=== PATIENT | female | born 1945 | race Asian ===

== ENCOUNTER 2017-02-26 03:35 | Inpatient (IN) | payer MEDICARE, OTHER ==
[~2017-02-26] VITALS: Ht 162.6 cm; Wt 47.0 kg
[~2017-02-26 03:35] MED LIST: ACID1TAB15 PO; ALEN35TA32 PO; LEVE500T53 PO; LOPE2 PO; MECL25TA3 PO; METF500T PO; METF500T7 PO; PANT40TA PO; SCOP1PAT11 TD; TAMO10 PO; VITAD400 PO
[2017-02-26 03:47] LABS: GLUCOSE,POINT OF CARE 58 MG/DL (70-110)
[2017-02-26] MEDS ORDERED: INSLAN SQ (03:47)
[2017-02-26] MEDS ORDERED: INSNOV SQ (03:47)
[2017-02-26] MEDS ORDERED: QUET25TA PO (03:56)
[2017-02-26] MEDS ORDERED: LORA-703 PO (03:56)
[2017-02-26] MEDS ORDERED: MEGE400O4 PO (03:56)
[2017-02-26] MEDS ORDERED: DOCU250C91 PO (03:56)
[2017-02-26] MEDS ORDERED: DEXA4TAB PO (03:56)
[2017-02-26] MEDS ORDERED: DEXTROSE 50%-WATER 25 GM/50 ML SYRINGE IVP ONE ×2 (04:00→12:15)
[2017-02-26] MEDS ORDERED: SODIUM CHLORIDE 0.9% 1,000 ML IV ONE ×2 (04:15→05:15)
[2017-02-26 04:17] LABS: GLUCOSE,POINT OF CARE 248 MG/DL (70-110)
[2017-02-26 04:17] LABS: HEMATOCRIT 33.2 % (36-46); HEMOGLOBIN 10.8 g/dL (12.0-16.0); MEAN CORPUSCULAR HEMOGLOBIN 31.6 pg (26.0-34.0); MEAN CORPUSCULAR HGB CONC 32.4 G/dL (31.0-37.0); MEAN CORPUSCULAR VOLUME 97 fL (80-100); PLATELET COUNT (AUTO) 108 K/uL (150-450); RED BLOOD CELL COUNT(AUTO) 3.41 MIL/uL (4.00-5.20); RED CELL DISTRIBUTION WIDTH 17.3 % (11.5-14.5)
[2017-02-26 04:20] LABS: APPEARANCE,URINE CLOUDY (CLEAR); GLUCOSE, URINE (UA) >=1000 mg/dL (NEGATIVE); KETONES,URINE NEGATIVE (NEGATIVE); LEUKOCYTE ESTERASE ,URINE TRACE (NEGATIVE); OCCULT BLOOD,URINE NEGATIVE (NEGATIVE); PROTEIN,URINE POS 1+ (NEGATIVE)
[2017-02-26 04:21] LABS: ADD UA MICROSCOPIC YES
[2017-02-26 04:26] LABS: INR 1.1 (0.9-1.1); PROTHROMBIN TIME 11.4 SEC (9.4-11.6)
[2017-02-26] MEDS ORDERED: ACETAMINOPHEN 650 MG RECTAL SUPPOSITORY PR ONE (04:30)
[2017-02-26 04:37] LABS: ALANINE AMINOTRANSFERASE 27 U/L (12-78); ALBUMIN 1.1 g/dL (3.4-5.0); ANION GAP 12 mmol/L (8-16); ASPARTATE AMINOTRANSFERASE 24 U/L (15-37); BILIRUBIN,TOTAL 0.8 mg/dL (0.1-1.0); CALCIUM, TOTAL 8.3 mg/dL (8.8-10.5); CARBON DIOXIDE 24 mmol/L (22-29); CHLORIDE 115 mmol/L (98-107); CREATININE 0.85 mg/dL (0.60-1.30); GLOMERULAR FILTR. RATE CALC > 60 mL/min (>60); LACTIC ACID 4.1 mmol/L (0.4-2.0); POTASSIUM 3.9 mmol/L (3.5-5.1); SODIUM SERUM 151 mmol/L (136-145); TOTAL PROTEIN, SERUM 5.5 g/dL (6.4-8.2); UREA NITROGEN, BLOOD 27 mg/dL (7-18)
[2017-02-26 05:04] LABS: RBC,URINE 0-2 /HPF (0-2); SQUAMOUS EPITHELIAL CELL,UR Few /LPF (None Seen)
[2017-02-26 05:08] LABS: BAND NEUTROPHILS % (MANUAL) 48 % (1-5); CORRECTED WHITE BLOOD COUNT 14.4 K/uL (4.5-11.0); LYMPHOCYTES % (MANUAL) 6 % (22-44); METAMYELOCYTES % 3 % (0-0); MYELOCYTES % 4 % (0-0); TOTAL CELLS COUNTED 100; WHITE BLOOD COUNT (AUTO) 14.4 K/uL (4.5-11.0)
[2017-02-26] MEDS ORDERED: CefTRIAXone 1 GM/DEXTROSE 50 ML IV ONE (05:15)
[2017-02-26 05:37] LABS: GLUCOSE,POINT OF CARE 166 MG/DL (70-110)
[2017-02-26] MEDS ORDERED: ACETAMINOPHEN 325 MG TABLET PO PRN (06:00)
[2017-02-26] MEDS ORDERED: ONDANSETRON HCL 4 MG/2 ML VIAL IVP PRN ×2 (06:00→13:15)
[2017-02-26 06:05] LABS: REFLEX LACTIC ACID? YES YES
[2017-02-26] MEDS ORDERED: AZITHROMYCIN 500 MG/NS 250 ML IV ONE (06:45)
[2017-02-26] MEDS ORDERED: MORPHINE SULFATE 4 MG/ML SYRINGE IVP ONE (07:15)
[2017-02-26] MEDS ORDERED: SODIUM CHLORIDE 0.9% 500 ML IV ONE ×3 (07:15→18:30)
[2017-02-26] MEDS ORDERED: ONDANSETRON HCL 4 MG/2 ML VIAL IVP ONE (07:15)
[2017-02-26 07:52] LABS: TEMPERATURE, FAHRENHEIT, BG 99.3 FAHREN (96.0-98.6)
[2017-02-26 07:55] LABS: ABG A-A DIFF O2 248.7 mmHg (10-20.0); ABG BASE EXCESS -7.4 mmol/L (-2.0-3.0); ABG OXYHEMOGLOBIN 97.4 % (94.0-100.0); ABG PCO2 35 mmHg (35-45); ABG PH 7.334 (7.35-7.450)
[2017-02-26 07:56] LABS: ALLEN TEST, BLOOD GAS Positive; IPAP, BG 12 cm H2O
[2017-02-26] MEDS ORDERED: ETOMIDATE 2 MG/ML 10 ML VIAL IVP ONE ×2 (08:05→12:23)
[2017-02-26] MEDS ORDERED: ALBUTEROL SULFATE 2.5 MG/0.5 ML NEB SOLUTION NEB ONE (09:00)
[2017-02-26] MEDS ORDERED: 0.9% SODIUM CHLORIDE 5 ML NEB SOLUTION NEB ONE (09:27)
[2017-02-26 10:17] LABS: GLUCOSE,POINT OF CARE 93 MG/DL (70-110)
[2017-02-26] MEDS ORDERED: ACETAMINOPHEN 650 MG/ISO-OSM 65 ML IV ONE (10:45)
[2017-02-26] MEDS ORDERED: SUCCINYLCHOLINE CHLORIDE 20 MG/ML 10 ML VIAL ONE ×2 (10:46→11:53)
[2017-02-26] MEDS ORDERED: RAPID SEQUENCE KIT [RSI] 1 EACH KIT ONE ×4 (10:46→11:53)
[2017-02-26] MEDS: PHENYLEPHRINE 200 MG/D5%-WATER 250 ML IV PRN (12:05)
[2017-02-26 12:12] LABS: GLUCOSE,POINT OF CARE 62 MG/DL (70-110)
[2017-02-26] MEDS ORDERED: SUCCINYLCHOLINE CHLORIDE 20 MG/ML 10 ML VIAL IVP ONE (12:25)
[2017-02-26] MEDS: PROPOFOL 1000 MG/ISO-OSM 100 ML IV PRN (13:00)
[2017-02-26] MEDS ORDERED: INSULIN REGULAR, HUMAN 100 UNITS/ML SQ PRN (13:15)
[2017-02-26] MEDS ORDERED: BISACODYL 10 MG RECTAL RECTAL SUPPOSITORY PR PRN (13:15)
[2017-02-26] MEDS ORDERED: DEXTROSE 50%-WATER 25 GM/50 ML SYRINGE IVP PRN (13:15)
[2017-02-26 13:54] LABS: ABG A-A DIFF O2 527.1 mmHg (10-20.0); ABG BASE EXCESS -10.8 mmol/L (-2.0-3.0); ABG HCO3 16.1 mmol/L (22.0-26.0); ABG OXYHEMOGLOBIN 96.3 % (94.0-100.0); ABG PCO2 50 mmHg (35-45); ABG PH 7.169 (7.35-7.450); ALLEN TEST, BLOOD GAS Positive; TEMPERATURE, FAHRENHEIT, BG 100.3 FAHREN (96.0-98.6)
[2017-02-26] MEDS: ALBUTEROL SULFATE 2.5 MG/0.5 ML NEB SOLUTION NEB SCH ×2 (13:58→20:00)
[2017-02-26] MEDS: IPRATROPIUM BROMIDE 0.5 MG/2.5 ML NEB SOLUTION NEB SCH ×2 (13:58→20:00)
[2017-02-26] MEDS ORDERED: DILTIAZEM HCL 5 MG/ML 5 ML VIAL IVP ONE (14:15)
[2017-02-26] MEDS: NOREPINEPHRINE 4 MG/D5%-WATER 250 ML IV PRN ×2 (15:01→20:09)
[2017-02-26 15:33] LABS: ABG A-A DIFF O2 362.2 mmHg (10-20.0); ABG BASE EXCESS -11.3 mmol/L (-2.0-3.0); ABG OXYHEMOGLOBIN 92.8 % (94.0-100.0); ABG PCO2 41 mmHg (35-45); ABG PH 7.222 (7.35-7.450)
[2017-02-26 15:34] LABS: ALLEN TEST, BLOOD GAS Positive
[2017-02-26 15:37] LABS: GLUCOSE,POINT OF CARE 127 MG/DL (70-110)
[2017-02-26 17:22] LABS: GLUCOSE,POINT OF CARE 113 MG/DL (70-110)
[2017-02-26] MEDS ORDERED: DEXTROSE 5%-0.45% SODIUM CHL 1,000 ML IV ONE (18:12)
[2017-02-26] MEDS ORDERED: ALBUMIN HUMAN 25%-25GM/100ML 100 ML IV SCH (18:15)
[2017-02-26] MEDS ORDERED: DEXTROSE 5%-0.45% SODIUM CHL 1,000 ML IV SCH (18:15)
[2017-02-26] MEDS ORDERED: VASOPRESSIN 100 UNITS in DEXTROSE 5%-WATER 245 ML IV PRN (18:30)
[2017-02-26] MEDS: ALBUMIN HUMAN 25%-25GM/100ML 100 ML IV SCH (18:37)
[2017-02-26 20:00] VITALS: BP 144/50
[2017-02-26] MEDS: PIPERACILLIN/TAZO 3.375 GM/D5W 50 ML IV SCH (20:10)
[2017-02-26] MEDS ORDERED: BARIUM SULFATE 0.1% SUSPENSION 450 ML BOTTLE ONE (21:21)
[2017-02-26 22:00] VITALS: BP 144/50
[2017-02-26] MEDS ORDERED: LevETIRAcetam 500 MG in DEXTROSE 5%-WATER 100 ML IV SCH (23:00)
[2017-02-27] VITALS: BP 120/46
[2017-02-27] MEDS: PROPOFOL 1000 MG/ISO-OSM 100 ML IV PRN (00:38)
[2017-02-27] MEDS: NOREPINEPHRINE 4 MG/D5%-WATER 250 ML IV PRN ×3 (00:39→07:44)
[2017-02-27 01:02] LABS: GLUCOSE COMMENT 1 Received Meds; GLUCOSE,POINT OF CARE 199 MG/DL (70-110)
[2017-02-27] MEDS: PIPERACILLIN/TAZO 3.375 GM/D5W 50 ML IV SCH ×2 (01:24→06:40)
[2017-02-27] MEDS: ALBUMIN HUMAN 25%-25GM/100ML 100 ML IV SCH (01:25)
[2017-02-27 02:00] VITALS: BP 109/42
[2017-02-27] MEDS: IPRATROPIUM BROMIDE 0.5 MG/2.5 ML NEB SOLUTION NEB SCH (02:08)
[2017-02-27] MEDS: ALBUTEROL SULFATE 2.5 MG/0.5 ML NEB SOLUTION NEB SCH (02:08)
[2017-02-27] MEDS: PHENYLEPHRINE 200 MG/D5%-WATER 250 ML IV PRN (02:11)
[2017-02-27 04:00] VITALS: BP 113/44
[2017-02-27 05:22] LABS: ANION GAP 21 mmol/L (8-16); CALCIUM, TOTAL 6.6 mg/dL (8.8-10.5); CARBON DIOXIDE 12 mmol/L (22-29); CHLORIDE 110 mmol/L (98-107); CREATINE KINASE, TOTAL 60 U/L (26-192); CREATININE 1.26 mg/dL (0.60-1.30); GLOMERULAR FILTR. RATE CALC 42 mL/min (>60); POTASSIUM 4.2 mmol/L (3.5-5.1); SODIUM SERUM 143 mmol/L (136-145); THYROID STIMULATING HORMONE 0.08 uIU/mL (0.36-3.74); UREA NITROGEN, BLOOD 30 mg/dL (7-18)
[2017-02-27 05:43] LABS: HEMATOCRIT 32.7 % (36-46); HEMOGLOBIN 10.2 g/dL (12.0-16.0); MEAN CORPUSCULAR HEMOGLOBIN 31.5 pg (26.0-34.0); MEAN CORPUSCULAR HGB CONC 31.1 G/dL (31.0-37.0); MEAN CORPUSCULAR VOLUME 102 fL (80-100); RED BLOOD CELL COUNT(AUTO) 3.22 MIL/uL (4.00-5.20)
[2017-02-27 06:30] VITALS: BP 94/40
[2017-02-27 06:57] LABS: CHOL/HDL RATIO 6.3 (3.9-5.7)
[2017-02-27 06:59] LABS: PLATELET COUNT (AUTO) 90 K/uL (150-450)
[2017-02-27 07:00] LABS: HEMOGLOBIN A1C 9.8 % (4.5-6.2)
[2017-02-27] MEDS ORDERED: DOPamine HCL 400 MG/D5%-WATER 250 ML IV PRN (07:47)
[2017-02-27 08:00] LABS: ABG A-A DIFF O2 613.9 mmHg (10-20.0); ABG BASE EXCESS -34.2 mmol/L (-2.0-3.0); ABG OXYHEMOGLOBIN 54.9 % (94.0-100.0); ABG PCO2 58 mmHg (35-45)
[2017-02-27 08:19] LABS: ABG HCO3 1.3 mmol/L (22.0-26.0)
[2017-02-27 08:37] LABS: GLUCOSE,POINT OF CARE 141 MG/DL (70-110)
[2017-02-27 08:40] LABS: VITAMIN B12 LEVEL > 2000 pg/mL (211-911)
[2017-02-27] MEDS ORDERED: PANTOPRAZOLE SODIUM 40 MG/VIAL IVP SCH (09:00)
[2017-02-27] MEDS ORDERED: LEVOFLOXACIN 500 MG/D5% WATER 100 ML IV SCH (09:00)
[2017-02-27 09:06] LABS: GLUCOSE,POINT OF CARE 107 MG/DL (70-110)
[2017-02-27 10:21] LABS: BAND NEUTROPHILS % (MANUAL) 45 % (1-5); LYMPHOCYTES % (MANUAL) 6 % (22-44); METAMYELOCYTES % 3 % (0-0); MYELOCYTES % 5 % (0-0); TOTAL CELLS COUNTED 100
[2017-02-27 10:25] LABS: CORRECTED WHITE BLOOD COUNT 4.2 K/uL (4.5-11.0); RBC MORPHOLOGY COMMENT ABNORMAL R
[2017-02-27 10:27] LABS: WHITE BLOOD COUNT (AUTO) 4.2 K/uL (4.5-11.0)
== END 2017-02-27 08:06 | disposition expired | DRG 871 ==
LOC: EMS 03:37 → ICU 16:34
PROVIDERS: ADMIT Internal Medicine Geriatric Medicine; ATTEND Internal Medicine Geriatric Medicine
PROC: 5A1935Z Respiratory Ventilation, Less than 24 Consecutive Hours (ICD-10-PCS; principal; 2017-02-26)
PROC: 0BH17EZ Insertion of Endotracheal Airway into Trachea, Via Natural or Artificial Opening (ICD-10-PCS; 2017-02-26)
DX: A41.9 Sepsis, unspecified organism (principal); J96.00 Acute respiratory failure, unspecified whether with hypoxia or hypercapnia; G93.40 Encephalopathy, unspecified; J18.9 Pneumonia, unspecified organism; R65.21 Severe sepsis with septic shock; E46 Unspecified protein-calorie malnutrition; E87.0 Hyperosmolality and hypernatremia; E87.2 Acidosis; C79.31 Secondary malignant neoplasm of brain; C78.00 Secondary malignant neoplasm of unspecified lung; D61.818 Other pancytopenia; N39.0 Urinary tract infection, site not specified; D69.6 Thrombocytopenia, unspecified; E86.0 Dehydration; E11.9 Type 2 diabetes mellitus without complications; D64.9 Anemia, unspecified; E86.9 Volume depletion, unspecified; E83.42 Hypomagnesemia; R62.7 Adult failure to thrive; B96.89 Other specified bacterial agents as the cause of diseases classified elsewhere; Z66 Do not resuscitate; I10 Essential (primary) hypertension; Z90.710 Acquired absence of both cervix and uterus; Z90.49 Acquired absence of other specified parts of digestive tract; Z88.0 Allergy status to penicillin; Z85.3 Personal history of malignant neoplasm of breast
CPT/HCPCS: 51702; 70450; 82306; 82607; 82746; 82805; 82962; 83036; 83605; 83735; 84439; 84443; 87040; 87081; 93005; 94002; 94003; 94640; 94660; 96365; 96366; 96367; 96368; 96375; 96376; 99291; J0131; J0330; J0456; J0696; J0712; J1265; J1956; J2270; J2370; J2405; J2543; J2704; J3490; J7030; J7040; J7060; P9046